=== PATIENT | female | born 1945 | race Caucasian/White ===

== ENCOUNTER 2017-11-08 12:14 | Emergency (ER) | payer OTHER, MEDICARE ==
[~2017-11-08] VITALS: Ht 154.9 cm; Wt 78.9 kg
[~2017-11-08 12:14] MED LIST: ADVAIR 250-501 EACH; AMOXICILLIN500 M3 PO; AUGMENTIN 875-1 EACH PO; AZITHROMYCIN250 M1 PO; BREO ELLIPTA 21 EACH PO; CLONAZEPAM1 MG PO; COUMADIN4 M1 PO; COUMADIN5 M2 PO; COUMADIN7.5 M1 PO; DILTIAZEM 24HR240 MG PO; DIVALPROEX SOD500 M3 PO; DOXYCYCLINE MO100 MG PO; EFFEXOR XR75 M1 PO; ELIQUIS5 M1 PO; GLIPIZIDE5 M2 PO; GUAIFENESI100 MG/5 M PO; METFORMIN HCL1000 M1 PO; MOXIFLOXACIN H400 M1 PO; PRAVASTATIN SOD40 M2 PO; PREDNISONE10 M2 PO; REMERON30 M3 PO; SPIRIVA18 MCG INH; SYMBICORT 80-10.2 GM INH; VENLAFAXINE H37.5 M4 PO; VENTOLIN HFA18 GM INH; WARFARIN SODIU7.5 MG PO
[2017-11-08 12:50] LABS: ABSOLUTE BASOPHIL COUNT 0 /CUMM (0.0-0.2); ABSOLUTE EOSINOPHIL COUNT 0 /CUMM (0.0-0.7); ABSOLUTE GRANULOCYTE CT 6.1 /CUMM (1.4-6.5); ABSOLUTE LYMPH COUNT 1.7 /CUMM (1.2-3.4); ABSOLUTE MONOCYTE COUNT 0.8 /CUMM (0.10-0.60); BASOPHIL % 0.3 % (0.0-2.0); EOSINOPHIL % 0.3 % (0-5); HEMATOCRIT 37.5 % (37-47); MEAN CORPUSCULAR HGB 30.2 PG (27.0-31.0); MEAN CORPUSCULAR VOLUME 88.6 FL (81.0-99.0); MEAN PLATELET VOLUME 8.5 FL (7.4-10.4); PLATELET COUNT 235 /CUMM (130-400); RBC DISTRIBUTION WIDTH 14.4 % (11.5-14.5); RED BLOOD CELL CT 4.23 /CUMM (4.20-5.40); WHITE BLOOD CELL COUNT 8.7 /CUMM (4.8-10.8)
--- NOTE | 2017-11-08 12:51 | ED GENERAL ADULT ---
History of Present Illness General Chief Complaint: General Adult Stated Complaint: PER PT HAS PNEMONIA Source: patient Exam Limitations: no limitations Vital Signs & Intake/Output Vital Signs & Intake/Output Vital Signs Date Time Temp Pulse Resp B/P B/P Pulse O2 O2 Flow FiO2 Mean Ox Delivery Rate 11/08 1220 99.1 76 20 128/76 94 Room Air Allergies Coded Allergies: NO KNOWN ALLERGIES (NONE 03/28/17) Reconcile Medications Albuterol Sulfate (Ventolin Hfa) 18 GM HFA.AER.AD 2 PUF INH Q4-6 PRN PRN copd Apixaban (Eliquis) 5 MG TABLET 1 TAB PO BID Blood thiner Divalproex Sodium (Divalproex Sodium ER) 500 MG TAB.ER.24H 2 TAB PO QPM DEPRESSION (Reported) Fluticasone/Vilanterol (Breo Ellipta 200-25 Mcg INH) 200 MCG-25 MCG/DOSE BLST.W.DEV 1 PUFF PO DAILY BREATHING PROBLEMS (Reported) Glipizide 5 MG TABLET 1 TAB PO BID DIABETES (Reported) Metformin HCl 1,000 MG TABLET 1 TAB PO BID DIABETES (Reported) Pravastatin Sodium 40 MG TABLET 1 TAB PO DAILY CHOLESTEROL (Reported) Venlafaxine HCl (Effexor XR) 75 MG CAP.ER.24H 1 CAP PO DAILY depression ( Reported) Triage Note: PT C/O SWEATING THIS MORNING, UNSTEADY ON FEET AND INCONTINENT OF URINE THIS MORNING. PT STATES SHE HAS A H/A, SORE THROAT, SAW PMD YESTERDAY AND GAVE HER INHALER. PT C/O PRODUCTIVE COUGH. STATES SAME SX THE LAST TIME SHE HAD PNEUMONIA Triage Nurses Notes Reviewed? yes HPI: This is a 72-year-old female with history significant for A. fib on DOAC, COPD on daily Briel, presenting the emergency department with 1 day of shortness of breath and lightheadedness in the setting of 1 week of URI symptoms. Patient states that she had 2 prior episodes of pneumonia in the past, both of which started with similar constellation of symptoms. She started feeling a sore throat several days ago, had classic URI symptoms and now has progressed to shortness of breath and weakness to the point where she has difficulty ambulating and performing her activities of daily living. Upon arrival, she denies any chest pain but does endorse ongoing shortness of breath and cough. She has had no recent travel/trauma. Her had similar URI type symptoms but he has since convalesced. She denies any nausea/vomiting/diarrhea. She does endorse some subjective fever. Past History Travel History Traveled to [place] past 21 day No Medical History Any Pertinent Medical History? see below for history Neurological: FLUID ON BRAIN EENT: NONE Cardiovascular: AFIB Respiratory: COPD, pneumonia Gastrointestinal: NONE Hepatic: NONE Renal: NONE Musculoskeletal: NONE Psychiatric: bipolar disease, depression Endocrine: diabetes Blood Disorders: NONE Cancer(s): breast cancer BOTTOM STEEP TENDER/Reproductive: NONE History of MRSA: No History of VRE: No History of CDIFF: No Surgical History Surgical History: cholecystectomy, masectomy (left), intracranial shunt Psychosocial History Who do you live with Spouse Services at Home None What is your primary language Citizen Of [place] Tobacco Use: Quit >30 days ago ETOH Use: denies use Illicit Drug Use: denies illicit drug use Family History Hx Contributory? No Review of Systems Review of Systems Constitutional: Reports: chills, diaphoresis, fever, malaise, weakness. EENTM: Reports: no symptoms. Respiratory: Reports: cough, short of breath, wheezing. Cardiovascular: Reports: no symptoms. GI: Reports: no symptoms. Musculoskeletal: Reports: no symptoms. Skin: Reports: see HPI. Neurological/Psychological: Reports: no symptoms. Physical Exam Physical Exam General Appearance: alert, awake, anxious, mild distress, thin Head: atraumatic Eyes: Bilateral: normal appearance. Ears, Nose, Throat: normal pharynx, normal ENT inspection Neck: normal inspection, supple, full range of motion Respiratory: chest non-tender, crackles, wheezing, prolonged expiratory phase, expiratory wheezing Cardiovascular: regular rate/rhythm, normal peripheral pulses Gastrointestinal: normal bowel sounds, soft, non-tender Back: normal inspection, normal range of motion Extremities: normal inspection, normal capillary refill, normal range of motion, no edema Neurologic/Psych: no motor/sensory deficits, awake, alert, oriented x 3, normal gait, normal mood/affect Skin: intact, diaphoresis Core Measures ACS in differential dx? Yes CVA/TIA Diagnosis: No Sepsis Present: No Sepsis Focused Exam Completed? Yes Progress Differential Diagnoses I considered the following diagnoses in my evaluation of the patient: Pneumonia, reactive airway exacerbation, viral URI, low suspicion for acute coronary syndrome, pulmonary embolism, thoracic aortic disease. Plan of Care: Orders Procedure Date/time Status LACTIC ACID 11/08 1518 Active Add-on Test (ER Only) 11/08 1259 Active BLOOD CULTURE 11/08 1252 Active TROPONIN LEVEL 11/08 1218 Complete LACTIC ACID 11/08 1218 Complete COMPREHENSIVE METABOLIC PANEL 11/08 1218 Complete CBC WITHOUT DIFFERENTIAL 11/08 121 Complete EKG 11/08 1218 Active Current Medications Sig/Ainsley Start time Last Medication Dose Stop Time Status Admin Azithromycin 500 MG ONCE ONE 11/08 1600 AC (Zithromax) 11/08 1659 Sodium Chloride 250 ML (Normal Saline 0.9%) Laboratory Tests 11/08/17 1241: Anion Gap 14, Estimated GFR 55 L, BUN/Creatinine Ratio 13.0, Glucose 77, Lactic Acid 1.1, Calcium 9.5, Total Bilirubin 0.7, AST 55 H, ALT 49, Alkaline Phosphatase 97, Troponin I < 0.01, Total Protein 7.3, Albumin 4.2, Globulin 3.1, Albumin/Globulin Ratio 1.4, CBC w Diff NO MAN DIFF REQ, RBC 4.23, MCV 88.6, MCH 30.2, MCHC 34.0, RDW 14.4, MPV 8.5, Gran % 69.9, Lymphocytes % 19.8 L, Monocytes % 9.7 H, Eosinophils % 0.3, Basophils % 0.3, Absolute Granulocytes 6.1, Absolute Lymphocytes 1.7, Absolute Monocytes 0.8 H, Absolute Eosinophils 0 , Absolute Basophils 0 Microbiology 11/08 1256 BLOOD: Blood Culture - RECD 11/08 125 BLOOD: Blood Culture - ORD Plan for DuoNeb, Solu-Medrol, chest x-ray, labs, blood cultures, reassessment, possible admission to the hospital for ongoing treatment. Following administration of IV fluids and DuoNeb, and Solu-Medrol, patient is much better appearing but continues to have mild expiratory wheezing. Will administer repeat dose of DuoNeb and reassess. Initial lab work shows no leukocytosis or anemia. BUN is mildly elevated. This picture is consistent with some low volume status, likely secondary to the presumed viral URI with increased insensible losses. Chest x-ray concerning for a new infiltrate developing in the right lower lobe. Given this, will start IV antibiotics. Patient is very well-appearing on reassessment, able to ambulate without difficulty or episode of shortness of breath. Given low curb 65 score and reassuring reassessment, will start outpatient antibiotics, in addition to a few days of prednisone for reactive airway exacerbation, plan for close outpatient follow-up and reassessment. Return precautions are provided. Initial ED EKG: NSR, mild flattening to TW in AVL compared to prior Departure Departure Time of Disposition: 1605 Disposition: HOME OR SELF CARE Condition: Stable Clinical Impression Primary Impression: Pneumonia Secondary Impressions: COPD exacerbation Referrals: Xiao COONEY,Vadim Neumann (PCP/Family) Additional Instructions: Please return to the emergency department immediately if you develop worsening fever, chills, shortness of breath, chest pain, cough, abdominal pain, or any other concerning symptoms. Please follow-up with your doctor this week as we discussed. Departure Forms: Customer Survey General Discharge Information Prescriptions: Current Visit Scripts Amoxicillin/Potassium Clav (Augmentin 875-125 Tablet) 2 TAB PO BID #20 TAB Azithromycin (Zithromax) 1 DP PO AD #6 TAB 2 the first day followed by 1 for days 2-5 Prednisone (Deltasone) 3 TAB PO DAILY #12 TAB BEGIN TOMORROW Critical Care Note Critical Care Note Critical Care Time: non-applicable
[2017-11-08 12:55] LABS: GRANULOCYTE % 69.9 % (42.2-75.2)
--- NOTE | 2017-11-08 15:54 | RADIOLOGY REPORT ---
EXAMINATION: XR CHEST CLINICAL INFORMATION: Pneumonia. COMPARISON: Chest radiograph 07/18/[address] chest 06/20/2017. TECHNIQUE: 2 views of the chest were obtained. FINDINGS: There is some slight increased density seen in the posterior basal segment of the right lower lobe, evident on the AP film, in the infrahilar region. On the lateral radiograph, there is some increased density seen posteriorly overlying the spine but this can be accounted for by the chronic pleural process that can be seen on June 20 CT scan with calcification and soft tissue density. The heart size is normal. There is no evidence of CHF. No other abnormalities are seen. A portion of a COMPLEX MANAGER shunt is seen.. IMPRESSION: Question of increased density seen in the right infrahilar region on the AP film which could represent an early infiltrate.
[2017-11-08] MEDS ORDERED: ZITHROMAX250 M2 PO (16:03)
[2017-11-08] MEDS ORDERED: AUGMENTIN 875-1 EACH PO (16:03)
[2017-11-08] MEDS ORDERED: DELTASONE20 MG PO (16:06)
[2017-11-08 17:40] VITALS: BP 121/73
== END 2017-11-08 17:51 ==
LOC: ERH 12:14
PROVIDERS: Physician Assistant
DX: J18.9 Pneumonia, unspecified organism (principal); J44.1 Chronic obstructive pulmonary disease with (acute) exacerbation; Z87.891 Personal history of nicotine dependence
CPT/HCPCS: 1263; 71046; 87040; 93005; 93010; 96374; 96375; J0456; J0696; J2405; J2930; J7040